=== PATIENT | male | born 1945 | race Caucasian/White ===

== ENCOUNTER 2017-01-07 13:15 | Inpatient (IN) | payer OTHER ==
[~2017-01-07] VITALS: Ht 175.3 cm; Wt 82.6 kg
[~2017-01-07 13:15] MED LIST: ASPIRIN325 MG PO; ASPIRIN81 M2 PO; CALCITRIOL0.25 MCG PO; CENTRUM SILVER1 EAC3 PO; CYMBALTA60 MG PO; Cymbalta PO; FLORINEF ACETA0.1 MG PO; IRON18 MG PO; KAYEXALATE453.6 GM PO; LANTUS 10100 UNITS/ SC; LANTUS 3 M100 UNITS1 SC; LORTAB 5-325 M1 EACH PO; NEXIUM40 MG PO; NOVOLOG 10100 UNITS/ SC; NOVOLOG PE100 UNITS/ SC; NovoLOG, HumaLOG SC; PRAVACHOL80 MG PO; PRAVASTATIN SOD20 MG PO; PROBIOTICS PO; Pen-Vee K,Veetids PO; Pravachol PO; REGLAN10 MG PO; SKELAXIN800 MG PO; SODIUM BICARBO325 MG PO; Sodium Bicarbonate PO; TOPROL XL25 MG PO; TYLENOL ARTHRI650 MG PO; Theragran-M,Centrum, PO; VITAMIN D1000 INTUN PO; VITAMIN D1000 UNIT PO; Vicodin,Norco 5/325 PO; Vitamin D PO; XALATAN2.5 ML BOTH EYES; Xalatan 0.005% Ophth BOTH EYES; ZOFRAN4 MG PO
[2017-01-07 14:07] LABS: POINT-OF-CARE METER ID UU14100415
[2017-01-07 15:12] LABS: HEMATOCRIT 30.7 % (38.0-50.0); MCH 30.3 PG (29.0-34.0); MCHC 32.6 G/DL (30.0-36.0); MEAN PLAT.VOLUME 10.3 uM^3 (9.0-12.4); RBC DIS.WIDTH-CV 15.6 % (11.8-14.6); WHITE BLOOD COUNT 10.1 K/uL (4.1-10.2)
[2017-01-07 15:20] LABS: CHLORIDE 109 mEq/L (99-109); POTASSIUM 4.3 mEq/L (3.7-5.4); SODIUM 136 mEq/L (136-147)
[2017-01-07 15:21] LABS: INTER. NORMALIZED RATIO 1.2; PROTHROMBIN TIME 12.2 (9.2-11.2); PTT 33.6 (25-32)
[2017-01-07 15:22] LABS: GLUCOSE 386 mg/dL (70-99)
[2017-01-07 15:23] LABS: ANION GAP 11 MEQ/L (2-14)
[2017-01-07 15:24] LABS: TOTAL BILIRUBIN 0.4 mg/dL (0.0-1.0)
[2017-01-07 15:25] LABS: ALKALINE PHOSPHATASE 46 IU/L (3-129)
[2017-01-07 15:26] LABS: GFR ESTIMATE (CALCULATED) 17 mL/min/
[2017-01-07 15:27] LABS: UREA NITROGEN (BUN) 73 mg/dL (9-23)
[2017-01-07 15:31] LABS: PLATELET COUNT 142 K/uL (156-360)
[2017-01-07 15:32] LABS: TROP-I INTERPRETATION INDETERMINATE; TROPONIN-I 0.43 ng/mL (0.0-0.30)
[2017-01-07 16:10] LABS: ABS NEUTROPHIL COUNT 9.7; ANISOCYTOSIS 1+; BAND NEUTROPHILS 25.4 % (0-8.0); EOSINOPHIL ABS CT 0; INSTRUMENT ABS NEUTROPHIL CT 9.5 K/uL; METAMYELOCYTES 1.8 %; MYELOCYTES 0.9 %; PLAT.SUFFICIENCY ADEQUATE; PLATELET CLUMPS PRESENT - PLATELET COUNT APPEARS ADQ.; SEG.NEUTROPHILS 70.2 % (46.0-76.0)
[2017-01-07] MEDS ORDERED: VITAMIN D31000 UNIT PO (17:09)
[2017-01-07] MEDS ORDERED: LO-DOSE ASPIRIN81 M2 PO (17:09)
[2017-01-07] MEDS ORDERED: LANTUS 3 M100 UNITS1 SC ×2 (17:10)
[2017-01-07] MEDS ORDERED: VITRON-C TABLE1 EACH PO (17:12)
[2017-01-07] MEDS ORDERED: SODIUM BICARBO325 MG PO (17:12)
[2017-01-07 17:45] LABS: CREATINE KINASE 348 IU/L (1-294)
[2017-01-07 18:03] LABS: ADD MIUA? YES; BILIRUBIN NEGATIVE; BLOOD MODERATE; COLOR YELLOW ((YELLOW)); GLUCOSE (STRIP) >=500; KETONES NEGATIVE; LEUKOCYTES TRACE; NITRITE NEGATIVE; PROTEIN (STRIP) 100; SPECIFIC GRAVITY 1.008 (1.000-1.030); UROBILINOGEN 0.2 MG/DL (0.2-1.0)
[2017-01-07 18:10] LABS: BACTERIA NONE SEEN /HPF; EPITHELIAL CELLS NONE SEEN /HPF; MUCUS NONE SEEN /LPF; RED BLOOD CELLS 0-5 /HPF (0-5); UCUL ADDED? NO
[2017-01-07 18:12] LABS: Estimated Average Glucose 160 mg/dL (70-123); HEMOGLOBIN A1c (GLYCOHEMOGLOB) 7.2 % HGB (Below 5.7)
[2017-01-07 20:27] LABS: POINT-OF-CARE METER ID UU14100415
[2017-01-07 21:50] VITALS: BP 170/88
[2017-01-07 23:15] LABS: POINT-OF-CARE METER ID UU14188625
[2017-01-08] VITALS: BP 144/68
[2017-01-08 00:06] LABS: TROP-I INTERPRETATION POSITIVE; TROPONIN-I 0.77 ng/mL (0.0-0.30)
[2017-01-08 01:41] LABS: INTER. NORMALIZED RATIO 1.2; PROTHROMBIN TIME 11.8 (9.2-11.2); PTT 33.8 (25-32)
[2017-01-08 03:36] LABS: HEMATOCRIT 28.9 % (38.0-50.0); MCH 30.4 PG (29.0-34.0); MCHC 32.9 G/DL (30.0-36.0); MCV 92.6 FL (86-99); MEAN PLAT.VOLUME 11.1 uM^3 (9.0-12.4); PLATELET COUNT 137 K/uL (156-360); RBC DIS.WIDTH-CV 15.4 % (11.8-14.6); RBC DIS.WIDTH-SD 51.8 % (39-53); RED BLOOD COUNT 3.12 M/uL (4.00-5.50); WHITE BLOOD COUNT 13.4 K/uL (4.1-10.2)
[2017-01-08 03:45] LABS: CHLORIDE 113 mEq/L (99-109); POTASSIUM 4.1 mEq/L (3.7-5.4); SODIUM 139 mEq/L (136-147)
[2017-01-08 03:47] LABS: GLUCOSE 292 mg/dL (70-99)
[2017-01-08 03:48] LABS: ANION GAP 10 MEQ/L (2-14)
[2017-01-08 03:49] LABS: TOTAL BILIRUBIN 0.4 mg/dL (0.0-1.0)
[2017-01-08 03:50] LABS: ALKALINE PHOSPHATASE 47 IU/L (3-129)
[2017-01-08 03:51] LABS: GFR ESTIMATE (CALCULATED) 18 mL/min/
[2017-01-08 03:52] LABS: UREA NITROGEN (BUN) 75 mg/dL (9-23)
[2017-01-08 04:01] LABS: TROP-I INTERPRETATION POSITIVE; TROPONIN-I 1.31 ng/mL (0.0-0.30)
[2017-01-08 04:11] VITALS: BP 160/74
[2017-01-08 04:46] LABS: ABS NEUTROPHIL COUNT 12.7; EOSINOPHIL ABS CT 0; INSTRUMENT ABS NEUTROPHIL CT 11.8 K/uL; LYMPHOCYTES 4.4 % (15.0-45.0); PLAT.SUFFICIENCY ADEQUATE; PLATELET CLUMPS PRESENT
[2017-01-08 06:11] LABS: BAND NEUTROPHILS 3.5 % (0-8.0); SEG.NEUTROPHILS 91.2 % (46.0-76.0)
[2017-01-08 08:00] VITALS: BP 154/72
[2017-01-08 08:55] LABS: INTER. NORMALIZED RATIO 1.1; PROTHROMBIN TIME 11.4 (9.2-11.2); PTT 45.5 (25-32)
[2017-01-08 09:24] LABS: TROP-I INTERPRETATION POSITIVE; TROPONIN-I 1.63 ng/mL (0.0-0.30)
[2017-01-08 11:23] LABS: C DIFF TOXIN NEGATIVE (NEGATIVE)
[2017-01-08 11:24] LABS: PROBE CHECK PASS; SPECIMEN PROCESSING CONTROL PASS
[2017-01-08 11:55] LABS: POINT-OF-CARE METER ID UU13113717
[2017-01-08 12:00] VITALS: BP 98/69
[2017-01-08 15:44] VITALS: BP 147/74
[2017-01-08 16:49] LABS: TROPONIN-I 1.75 ng/mL (0.0-0.30)
[2017-01-08 16:50] LABS: TROP-I INTERPRETATION POSITIVE
[2017-01-08 17:24] LABS: POINT-OF-CARE METER ID UU13113717
[2017-01-08 23:34] LABS: TROP-I INTERPRETATION POSITIVE; TROPONIN-I 1.77 ng/mL (0.0-0.30)
[2017-01-09] VITALS: BP 144/67
[2017-01-09 03:21] VITALS: BP 121/60
[2017-01-09 05:50] LABS: HEMATOCRIT 26.9 % (38.0-50.0); MCH 31.2 PG (29.0-34.0); MCHC 33.1 G/DL (30.0-36.0); MCV 94.4 FL (86-99); MEAN PLAT.VOLUME 11.4 uM^3 (9.0-12.4); PLATELET COUNT 127 K/uL (156-360); RBC DIS.WIDTH-CV 15.7 % (11.8-14.6); RBC DIS.WIDTH-SD 53.6 % (39-53); RED BLOOD COUNT 2.85 M/uL (4.00-5.50); WHITE BLOOD COUNT 10.4 K/uL (4.1-10.2)
[2017-01-09 06:14] LABS: ANION GAP 10 MEQ/L (2-14); CHLORIDE 115 MEQ/L (99-109); GFR ESTIMATE (CALCULATED) 21 mL/min/; POTASSIUM 3.7 MEQ/L (3.7-5.4); SAMPLE HEMOLYSIS CHECK 0; SAMPLE ICTERIC CHECK 0; SAMPLE LIPEMIA CHECK 0; SODIUM 140 MEQ/L (136-147); UREA NITROGEN (BUN) 66 mg/dL (9-23)
[2017-01-09 06:24] LABS: GLUCOSE 72 mg/dL (70-99)
[2017-01-09 08:01] LABS: CREATINE KINASE 247 IU/L (1-294)
[2017-01-09 08:19] VITALS: BP 117/57
[2017-01-09 08:26] LABS: TROP-I INTERPRETATION POSITIVE; TROPONIN-I 1.47 ng/mL (0.0-0.30)
[2017-01-09 09:13] LABS: POINT-OF-CARE METER ID UU14188625
[2017-01-09 12:19] VITALS: BP 125/60
[2017-01-09 12:32] LABS: POINT-OF-CARE METER ID UU14188625
[2017-01-09 14:11] LABS: TROP-I INTERPRETATION POSITIVE; TROPONIN-I 1.14 ng/mL (0.0-0.30)
[2017-01-09 20:03] VITALS: BP 125/59
[2017-01-09 21:41] LABS: POINT-OF-CARE METER ID UU14188625
[2017-01-09 22:20] LABS: TROP-I INTERPRETATION POSITIVE
[2017-01-09 23:27] VITALS: BP 117/59
[2017-01-10 07:03] LABS: HEMATOCRIT 27.6 % (38.0-50.0); MCHC 33.3 G/DL (30.0-36.0); MCV 92.9 FL (86-99); MEAN PLAT.VOLUME 11.5 uM^3 (9.0-12.4); PLATELET COUNT 133 K/uL (156-360); RBC DIS.WIDTH-CV 15.7 % (11.8-14.6); RBC DIS.WIDTH-SD 53.4 % (39-53); RED BLOOD COUNT 2.97 M/uL (4.00-5.50); WHITE BLOOD COUNT 9.9 K/uL (4.1-10.2)
[2017-01-10 07:23] LABS: TROP-I INTERPRETATION POSITIVE; TROPONIN-I 0.97 ng/mL (0.0-0.30)
[2017-01-10 07:52] LABS: ANION GAP 12 MEQ/L (2-14); CHLORIDE 112 MEQ/L (99-109); GFR ESTIMATE (CALCULATED) 21 mL/min/; GLUCOSE 124 mg/dL (70-99); POTASSIUM 3.7 MEQ/L (3.7-5.4); SAMPLE HEMOLYSIS CHECK 0; SAMPLE ICTERIC CHECK 0; SAMPLE LIPEMIA CHECK 0; SODIUM 138 MEQ/L (136-147); UREA NITROGEN (BUN) 65 mg/dL (9-23)
[2017-01-10 08:23] VITALS: BP 114/55
[2017-01-10 08:31] LABS: BASE EXCESS -12.8 mEq/L (-3 to +3); BICARBONATE 11.9 mEq/L (22-26); CARBOXY HGB 0.8 % (0-5); METHEMOGLOBIN 0.5 % (0-1.5); pH 7.32 (7.35-7.45)
[2017-01-10 08:33] LABS: PCO2 23 mm Hg (35-45); PO2 69 mm Hg (80-100); SITE LB
[2017-01-10 08:34] LABS: COMMENTS - BLOOD GASES A+C+
[2017-01-10 08:35] LABS: DEVICE RA; TOTAL RESP RATE 14 resp/min
[2017-01-10 14:47] LABS: TROP-I INTERPRETATION POSITIVE; TROPONIN-I 0.92 ng/mL (0.0-0.30)
[2017-01-10 17:04] VITALS: BP 131/62
[2017-01-10 22:43] VITALS: BP 103/55
[2017-01-11 07:57] LABS: POINT-OF-CARE METER ID UU14174225
[2017-01-11 08:06] VITALS: BP 141/71
[2017-01-11 11:37] LABS: EOSINOPHIL (%) 1.1 % (0-5); EOSINOPHIL COUNT 0.1 K/uL (0-0.3); IMMATURE GRANULOCYTE (%) 2.5 % (0.0-0.7); IMMATURE GRANULOCYTE COUNT 0.3 K/uL; INSTRUMENT ABS NEUTROPHIL CT 8.2 K/uL; LYMPHOCYTE COUNT 0.9 K/uL (1.0-2.8); MCH 29.7 PG (29.0-34.0); MCHC 32.2 G/DL (30.0-36.0); MCV 92.2 FL (86-99); MEAN PLAT.VOLUME 10.8 uM^3 (9.0-12.4); MONOCYTE COUNT 0.8 K/uL (0-0.8); NEUTROPHIL (%) 79.9 % (45-76); NEUTROPHIL COUNT 8.2 K/uL (1.8-6.4); PLATELET COUNT 150 K/uL (156-360); RBC DIS.WIDTH-CV 15.5 % (11.8-14.6); RBC DIS.WIDTH-SD 52.7 % (39-53); RED BLOOD COUNT 2.93 M/uL (4.00-5.50); WHITE BLOOD COUNT 10.3 K/uL (4.1-10.2)
[2017-01-11 12:01] LABS: POINT-OF-CARE METER ID UU14188625
[2017-01-11 12:20] LABS: ANION GAP 12 MEQ/L (2-14); C-REACTIVE PROTEIN > 240.0 MG/L (0-10); CHLORIDE 113 MEQ/L (99-109); GFR ESTIMATE (CALCULATED) 20 mL/min/; GLUCOSE 185 mg/dL (70-99); HDL CHOLESTEROL 21 MG/DL (Desirable>=40); LDL CHOLESTEROL 30 mg/dL (Desirable<100); NON-HDL CHOLESTEROL 52 mg/dL (Desirable<160); POTASSIUM 3.9 MEQ/L (3.7-5.4); SAMPLE HEMOLYSIS CHECK 0; SAMPLE ICTERIC CHECK 0; SAMPLE LIPEMIA CHECK 0; SODIUM 138 MEQ/L (136-147); TOTAL CHOLESTEROL 73 mg/dL (Desirable<200); TRIGLYCERIDES 112 MG/DL (Normal: <150); UREA NITROGEN (BUN) 62 mg/dL (9-23)
[2017-01-11 12:42] LABS: ERTH.SED.RATE 56 MM/HR (0-20)
[2017-01-11 13:16] VITALS: BP 136/71
[2017-01-11 15:52] VITALS: BP 135/67
[2017-01-11 20:00] VITALS: BP 134/67
[2017-01-11 21:23] LABS: POINT-OF-CARE METER ID UU14188625
[2017-01-11 21:55] LABS: WBC AREA COUNTED 0.4; WBC DILUTION 20; WHITE CELL RAW COUNT 57
[2017-01-11 21:59] LABS: APPEARANCE ORANGE-TURBID; MONONUCLEAR WBC'S 24 %; POLYNUCLEAR WBC'S 76 % (0-25); RED CELL COUNT 212000 /MM^3 (0-1); SYNOVIAL FLUID EOSINOPHILS 0 % (0-25); WHITE CELL COUNT 28500 /MM^3 (0-200.0)
[2017-01-11 22:37] LABS: Estimated Average Glucose 163 mg/dL (70-123); HEMOGLOBIN A1c (GLYCOHEMOGLOB) 7.3 % HGB (Below 5.7)
[2017-01-11 23:30] VITALS: BP 159/77
[2017-01-12 04:00] VITALS: BP 142/69
[2017-01-12 06:13] LABS: HEMATOCRIT 25.4 % (38.0-50.0); MCH 30.2 PG (29.0-34.0); MCHC 33.1 G/DL (30.0-36.0); MCV 91.4 FL (86-99); MEAN PLAT.VOLUME 11.1 uM^3 (9.0-12.4); PLATELET COUNT 177 K/uL (156-360); RBC DIS.WIDTH-CV 15.6 % (11.8-14.6); RBC DIS.WIDTH-SD 51.7 % (39-53); RED BLOOD COUNT 2.78 M/uL (4.00-5.50); WHITE BLOOD COUNT 11.3 K/uL (4.1-10.2)
[2017-01-12 06:58] LABS: ANION GAP 14 MEQ/L (2-14); CHLORIDE 116 MEQ/L (99-109); GFR ESTIMATE (CALCULATED) 22 mL/min/; POTASSIUM 3.3 MEQ/L (3.7-5.4); SAMPLE HEMOLYSIS CHECK 0; SAMPLE ICTERIC CHECK 0; SAMPLE LIPEMIA CHECK 0; SODIUM 139 MEQ/L (136-147); UREA NITROGEN (BUN) 61 mg/dL (9-23)
[2017-01-12 07:00] LABS: GLUCOSE 117 mg/dL (70-99)
[2017-01-12 07:01] LABS: CRYSTALS NO CRYSTALS SEEN
[2017-01-12 07:01] LABS: CARBON DIOXIDE (BICARBONATE) < 10.0 MEQ/L (20-31)
[2017-01-12 08:02] LABS: POINT-OF-CARE METER ID UU14188625
[2017-01-12 08:32] VITALS: BP 91/66
[2017-01-12 11:17] VITALS: BP 114/63
[2017-01-12 15:39] VITALS: BP 139/77
[2017-01-12 17:01] LABS: POINT-OF-CARE METER ID UU14188625
[2017-01-12 19:12] LABS: POINT-OF-CARE METER ID UU13113675; POINT-OF-CARE USER ID ADMSLT55
[2017-01-12 20:56] LABS: ANION GAP 12 MEQ/L (2-14); CHLORIDE 112 MEQ/L (99-109); GFR ESTIMATE (CALCULATED) 23 mL/min/; GLUCOSE 170 mg/dL (70-99); POTASSIUM 3.5 MEQ/L (3.7-5.4); SAMPLE HEMOLYSIS CHECK 0; SAMPLE ICTERIC CHECK 0; SAMPLE LIPEMIA CHECK 0; SODIUM 139 MEQ/L (136-147); UREA NITROGEN (BUN) 58 mg/dL (9-23)
[2017-01-13 00:36] VITALS: BP 141/78
[2017-01-13 05:53] LABS: HEMATOCRIT 25.5 % (38.0-50.0); MCH 30.7 PG (29.0-34.0); MCHC 34.1 G/DL (30.0-36.0); MCV 90.1 FL (86-99); MEAN PLAT.VOLUME 11.6 uM^3 (9.0-12.4); RBC DIS.WIDTH-CV 15.5 % (11.8-14.6); RBC DIS.WIDTH-SD 51.2 % (39-53); RED BLOOD COUNT 2.83 M/uL (4.00-5.50); WHITE BLOOD COUNT 11.6 K/uL (4.1-10.2)
[2017-01-13 05:54] LABS: PLATELET COUNT 237 K/uL (156-360)
[2017-01-13 06:32] LABS: ANION GAP 13 MEQ/L (2-14); CHLORIDE 110 MEQ/L (99-109); GFR ESTIMATE (CALCULATED) 24 mL/min/; GLUCOSE 157 mg/dL (70-99); POTASSIUM 3.6 MEQ/L (3.7-5.4); SAMPLE HEMOLYSIS CHECK 0; SAMPLE ICTERIC CHECK 0; SAMPLE LIPEMIA CHECK 0; SODIUM 140 MEQ/L (136-147); UREA NITROGEN (BUN) 57 mg/dL (9-23)
[2017-01-13 08:00] VITALS: BP 140/70
[2017-01-13 09:11] LABS: MAGNESIUM 1.7 mg/dl (1.3-2.7)
[2017-01-13 11:24] VITALS: BP 144/75
[2017-01-13 13:29] LABS: ANION GAP 12 MEQ/L (2-14); CHLORIDE 108 MEQ/L (99-109); GFR ESTIMATE (CALCULATED) 24 mL/min/; POTASSIUM 3.5 MEQ/L (3.7-5.4); SAMPLE HEMOLYSIS CHECK 0; SAMPLE ICTERIC CHECK 0; SAMPLE LIPEMIA CHECK 0; SODIUM 139 MEQ/L (136-147); UREA NITROGEN (BUN) 52 mg/dL (9-23)
[2017-01-13 13:30] LABS: GLUCOSE 257 mg/dL (70-99)
[2017-01-13 14:22] VITALS: BP 135/63
[2017-01-13 20:39] VITALS: BP 132/62
[2017-01-14 00:25] VITALS: BP 163/73
[2017-01-14 04:22] VITALS: BP 146/71
[2017-01-14 06:49] LABS: HEMATOCRIT 25.5 % (38.0-50.0); MCH 30.9 PG (29.0-34.0); MCHC 34.1 G/DL (30.0-36.0); MCV 90.4 FL (86-99); MEAN PLAT.VOLUME 10.7 uM^3 (9.0-12.4); PLATELET COUNT 273 K/uL (156-360); RBC DIS.WIDTH-CV 15.1 % (11.8-14.6); RBC DIS.WIDTH-SD 50.3 % (39-53); RED BLOOD COUNT 2.82 M/uL (4.00-5.50); WHITE BLOOD COUNT 14.7 K/uL (4.1-10.2)
[2017-01-14 07:39] LABS: ANION GAP 12 MEQ/L (2-14); CHLORIDE 107 MEQ/L (99-109); GFR ESTIMATE (CALCULATED) 25 mL/min/; POTASSIUM 3.1 MEQ/L (3.7-5.4); SAMPLE HEMOLYSIS CHECK 0; SAMPLE ICTERIC CHECK 0; SAMPLE LIPEMIA CHECK 0; SODIUM 139 MEQ/L (136-147); UREA NITROGEN (BUN) 48 mg/dL (9-23)
[2017-01-14 07:40] LABS: GLUCOSE 74 mg/dL (70-99)
[2017-01-14 08:14] VITALS: BP 142/69
[2017-01-14 12:10] VITALS: BP 135/69
[2017-01-14 14:59] VITALS: BP 125/60
[2017-01-14 16:41] LABS: POINT-OF-CARE METER ID UU14174225
[2017-01-14 20:07] VITALS: BP 125/60
[2017-01-14 22:03] LABS: POINT-OF-CARE METER ID UU14174225
[2017-01-15 00:02] VITALS: BP 150/72
[2017-01-15 04:33] VITALS: BP 146/69
[2017-01-15 06:12] LABS: HEMATOCRIT 25.4 % (38.0-50.0); MCH 29.4 PG (29.0-34.0); MCHC 32.7 G/DL (30.0-36.0); MCV 90.1 FL (86-99); MEAN PLAT.VOLUME 10.8 uM^3 (9.0-12.4); PLATELET COUNT 295 K/uL (156-360); RBC DIS.WIDTH-SD 49.5 % (39-53); RED BLOOD COUNT 2.82 M/uL (4.00-5.50); WHITE BLOOD COUNT 12.9 K/uL (4.1-10.2)
[2017-01-15 06:50] LABS: ANION GAP 12 MEQ/L (2-14); CHLORIDE 108 MEQ/L (99-109); GFR ESTIMATE (CALCULATED) 24 mL/min/; SAMPLE HEMOLYSIS CHECK 0; SAMPLE ICTERIC CHECK 0; SAMPLE LIPEMIA CHECK 0; SODIUM 137 MEQ/L (136-147); UREA NITROGEN (BUN) 54 mg/dL (9-23)
[2017-01-15 06:57] LABS: GLUCOSE 114 mg/dL (70-99); POTASSIUM 3.9 MEQ/L (3.7-5.4)
[2017-01-15 07:07] LABS: MAGNESIUM 1.8 mg/dl (1.3-2.7)
[2017-01-15 09:47] VITALS: BP 125/65
[2017-01-15 11:25] VITALS: BP 111/60
[2017-01-15 17:18] VITALS: BP 161/80
[2017-01-15 21:25] VITALS: BP 162/65
[2017-01-16 00:27] VITALS: BP 119/71
[2017-01-16 05:38] LABS: HEMATOCRIT 26.8 % (38.0-50.0); MCH 30.4 PG (29.0-34.0); MCHC 33.2 G/DL (30.0-36.0); MCV 91.5 FL (86-99); MEAN PLAT.VOLUME 10.5 uM^3 (9.0-12.4); PLATELET COUNT 309 K/uL (156-360); RBC DIS.WIDTH-CV 15.2 % (11.8-14.6); RBC DIS.WIDTH-SD 50.4 % (39-53); RED BLOOD COUNT 2.93 M/uL (4.00-5.50)
[2017-01-16 06:06] LABS: ANION GAP 13 MEQ/L (2-14); CHLORIDE 109 MEQ/L (99-109); GFR ESTIMATE (CALCULATED) 23 mL/min/; GLUCOSE 93 mg/dL (70-99); POTASSIUM 3.9 MEQ/L (3.7-5.4); SAMPLE HEMOLYSIS CHECK 0; SAMPLE ICTERIC CHECK 0; SAMPLE LIPEMIA CHECK 0; SODIUM 139 MEQ/L (136-147); UREA NITROGEN (BUN) 54 mg/dL (9-23)
[2017-01-16 08:19] VITALS: BP 125/71
[2017-01-16 11:26] LABS: POINT-OF-CARE METER ID UU14174212
[2017-01-16 12:03] LABS: POINT-OF-CARE METER ID UU13113819
[2017-01-16] MEDS ORDERED: VIGAMOX 0.60 DROP/3 LEFT EYE (12:49)
[2017-01-16] MEDS ORDERED: PREDNISOLONE AC15 ML LEFT EYE (12:49)
[2017-01-16 23:35] VITALS: BP 142/65
[2017-01-17 06:14] LABS: ANION GAP 11 MEQ/L (2-14); CHLORIDE 109 MEQ/L (99-109); GFR ESTIMATE (CALCULATED) 23 mL/min/; SAMPLE HEMOLYSIS CHECK 0; SAMPLE ICTERIC CHECK 0; SAMPLE LIPEMIA CHECK 0; SODIUM 138 MEQ/L (136-147); UREA NITROGEN (BUN) 59 mg/dL (9-23)
[2017-01-17 06:15] LABS: GLUCOSE 142 mg/dL (70-99); POTASSIUM 4.7 MEQ/L (3.7-5.4)
[2017-01-17 11:17] VITALS: BP 118/66
[2017-01-17 16:27] LABS: POINT-OF-CARE METER ID UU13113717
[2017-01-17 23:46] VITALS: BP 145/63
[2017-01-18 05:36] LABS: HEMATOCRIT 25.6 % (38.0-50.0); MCH 29.2 PG (29.0-34.0); MCV 91.1 FL (86-99); MEAN PLAT.VOLUME 10.8 uM^3 (9.0-12.4); PLATELET COUNT 356 K/uL (156-360); RBC DIS.WIDTH-CV 14.9 % (11.8-14.6); RBC DIS.WIDTH-SD 50.2 % (39-53); RED BLOOD COUNT 2.81 M/uL (4.00-5.50); WHITE BLOOD COUNT 9.6 K/uL (4.1-10.2)
[2017-01-18 06:36] LABS: ANION GAP 12 MEQ/L (2-14); CHLORIDE 109 MEQ/L (99-109); GFR ESTIMATE (CALCULATED) 20 mL/min/; POTASSIUM 4.8 MEQ/L (3.7-5.4); SAMPLE HEMOLYSIS CHECK 0; SAMPLE ICTERIC CHECK 0; SAMPLE LIPEMIA CHECK 0; SODIUM 137 MEQ/L (136-147); UREA NITROGEN (BUN) 68 mg/dL (9-23)
[2017-01-18 06:40] LABS: GLUCOSE 77 mg/dL (70-99)
[2017-01-18 07:54] LABS: POINT-OF-CARE METER ID UU14174225
[2017-01-18 08:18] VITALS: BP 139/65
[2017-01-18 08:19] LABS: POINT-OF-CARE METER ID UU14174225
[2017-01-18 11:41] LABS: POINT-OF-CARE METER ID UU14174225
[2017-01-18 16:54] LABS: POINT-OF-CARE METER ID UU14174225
[2017-01-18] MEDS ORDERED: [UNRECOGNIZED DRUG - CODE] IV (16:55)
[2017-01-18 17:23] VITALS: BP 124/75
== END 2017-01-18 20:44 | disposition short-term general hospital (02) | DRG 853 ==
LOC: EME → EDBD 13:15 → 5SOUTH 16:40 → EDOF 16:40 → 5SOUTH 21:16
PROVIDERS: Emergency Medicine; Hospitalist; Internal Medicine; Internal Medicine Cardiovascular Disease; Internal Medicine Nephrology; Nurse Practitioner Adult Health; Orthopaedic Surgery
PROC: 0S9G3ZX Drainage of Left Ankle Joint, Percutaneous Approach, Diagnostic (ICD-10-PCS; principal; 2017-01-11)
PROC: 08933ZZ Drainage of Left Anterior Chamber, Percutaneous Approach (ICD-10-PCS; principal; 2017-01-11)
PROC: 0SBG0ZZ Excision of Left Ankle Joint, Open Approach (ICD-10-PCS; 2017-01-12)
PROC: B24BZZ4 Ultrasonography of Heart with Aorta, Transesophageal (ICD-10-PCS; 2017-01-18)
DX: A40.9 Streptococcal sepsis, unspecified (principal); I33.0 Acute and subacute infective endocarditis; I76 Septic arterial embolism; I21.4 Non-ST elevation (NSTEMI) myocardial infarction; I63.40 Cerebral infarction due to embolism of unspecified cerebral artery; T82.6XXA Infection and inflammatory reaction due to cardiac valve prosthesis, initial encounter; M00.272 Other streptococcal arthritis, left ankle and foot; L03.116 Cellulitis of left lower limb; N17.9 Acute kidney failure, unspecified; N18.4 Chronic kidney disease, stage 4 (severe); H44.002 Unspecified purulent endophthalmitis, left eye; G93.40 Encephalopathy, unspecified; E11.65 Type 2 diabetes mellitus with hyperglycemia; E11.22 Type 2 diabetes mellitus with diabetic chronic kidney disease; E11.43 Type 2 diabetes mellitus with diabetic autonomic (poly)neuropathy; Y83.1 Surgical operation with implant of artificial internal device as the cause of abnormal reaction of the patient, or of later complication, without mention of misadventure at the time of the procedure; E87.2 Acidosis; I73.9 Peripheral vascular disease, unspecified; E87.5 Hyperkalemia; E11.21 Type 2 diabetes mellitus with diabetic nephropathy; D63.1 Anemia in chronic kidney disease; H40.9 Unspecified glaucoma; E87.6 Hypokalemia; E55.9 Vitamin D deficiency, unspecified; E78.5 Hyperlipidemia, unspecified; B95.5 Unspecified streptococcus as the cause of diseases classified elsewhere; B95.4 Other streptococcus as the cause of diseases classified elsewhere; Z79.4 Long term (current) use of insulin; Z96.1 Presence of intraocular lens
CPT/HCPCS: 36600; 70450; 70551; 71010; 73610; 73630; 80048; 80048 91; 80053; 80061; 80069; 80202; 81003; 82550; 82550 91; 82803; 82948; 83036; 83605; 83735; 84484; 85025; 85027; 85610; 85651; 85730; 86140; 87040; 87077; 87102; 87186; 87205; 87493; 87801; 89051; 89060; 93005; 93306; 93312; 93970; 97530 GP; 99281; 99285; J0690; J0692; J0696; J0713; J0881; J1100; J1170; J1644; J1815; J1956; J2270; J2405; J2540; J2795; J3010; J3370; J7030; J7050; J7070; J7120

== ENCOUNTER 2017-02-01 10:13 | Inpatient (IN) | payer OTHER ==
[~2017-02-01] VITALS: Ht 175.3 cm; Wt 76.2 kg
[2017-02-01] VITALS (11 sets, daily range): BP systolic 105–136; BP diastolic 53–78
[~2017-02-01 10:13] MED LIST changes: +LO-DOSE ASPIRIN81 M2 PO; +PREDNISOLONE AC15 ML LEFT EYE; +VIGAMOX 0.60 DROP/3 LEFT EYE; +VITAMIN D31000 UNIT PO; +VITRON-C TABLE1 EACH PO; +[UNRECOGNIZED DRUG - CODE] IV
[2017-02-01] MEDS ORDERED: HEPARIN SO5000 UNITS SC (10:55)
[2017-02-01] MEDS ORDERED: NABI650T PO (10:59)
[2017-02-01] MEDS ORDERED: DULCOLAX10 MG PR (11:06)
[2017-02-01] MEDS ORDERED: MILK OF MAGN PO (11:08)
[2017-02-01] MEDS ORDERED: MIRALAX17 GM PO (11:10)
[2017-02-01] MEDS ORDERED: ULTRAM50 MG PO (11:11)
[2017-02-01 11:33] LABS: INTER. NORMALIZED RATIO 1.3; PROTHROMBIN TIME 14.2 SEC (10.2-12.9)
[2017-02-01 11:38] LABS: CHLORIDE 100 mEq/L (99-109); POTASSIUM 4.5 mEq/L (3.7-5.4); SODIUM 127 mEq/L (136-147)
[2017-02-01 11:39] LABS: HEMATOCRIT 15.5 % (38.0-50.0); MCH 28.7 PG (29.0-34.0); MCHC 31.6 G/DL (30.0-36.0); MCV 90.6 FL (86-99); RBC DIS.WIDTH-CV 16.9 % (11.8-14.6); RBC DIS.WIDTH-SD 54.4 % (39-53); RED BLOOD COUNT 1.71 M/uL (4.00-5.50); WHITE BLOOD COUNT 11.7 K/uL (4.1-10.2)
[2017-02-01 11:41] LABS: ANION GAP 8 MEQ/L (2-14)
[2017-02-01 11:42] LABS: TOTAL BILIRUBIN 0.2 mg/dL (0.0-1.0)
[2017-02-01 11:43] LABS: ALKALINE PHOSPHATASE 74 IU/L (3-129)
[2017-02-01 11:44] LABS: GFR ESTIMATE (CALCULATED) 20 mL/min/; GLUCOSE 331 mg/dL (70-99)
[2017-02-01 11:46] LABS: TROP-I INTERPRETATION NEGATIVE; TROPONIN-I 0.01 ng/mL (0.0-0.30)
[2017-02-01 11:54] LABS: UREA NITROGEN (BUN) 122 mg/dL (9-23)
[2017-02-01] MEDS ORDERED: [UNRECOGNIZED DRUG - CODE] IV (12:58)
[2017-02-01 15:09] LABS: MEAN PLAT.VOLUME 11.4 uM^3 (9.0-12.4); PLATELET COUNT 235 K/uL (156-360)
[2017-02-01 15:10] LABS: PLAT.SUFFICIENCY ADEQUATE
[2017-02-01 16:42] LABS: POINT-OF-CARE METER ID UU13113781; POINT-OF-CARE USER ID ENVKC36
[2017-02-01 18:24] LABS: HEMATOCRIT 21.6 % (38.0-50.0); MCH 28.7 PG (29.0-34.0); MCHC 32.9 G/DL (30.0-36.0); MCV 87.4 FL (86-99); MEAN PLAT.VOLUME 10.3 uM^3 (9.0-12.4); PLATELET COUNT 240 K/uL (156-360); RBC DIS.WIDTH-CV 16.1 % (11.8-14.6); RBC DIS.WIDTH-SD 50.8 % (39-53); WHITE BLOOD COUNT 12.4 K/uL (4.1-10.2)
[2017-02-01 18:28] LABS: RED BLOOD COUNT 2.47 M/uL (4.00-5.50)
[2017-02-02] VITALS (7 sets, daily range): BP systolic 117–150; BP diastolic 56–76
[2017-02-02 01:08] LABS: HEMATOCRIT 19.6 % (38.0-50.0)
[2017-02-02 07:43] LABS: HEMATOCRIT 23.3 % (38.0-50.0); MCH 29.4 PG (29.0-34.0); MCHC 33.5 G/DL (30.0-36.0); MCV 87.9 FL (86-99); MEAN PLAT.VOLUME 10.4 uM^3 (9.0-12.4); PLATELET COUNT 217 K/uL (156-360); RBC DIS.WIDTH-CV 16.5 % (11.8-14.6); RBC DIS.WIDTH-SD 51.8 % (39-53); RED BLOOD COUNT 2.65 M/uL (4.00-5.50); WHITE BLOOD COUNT 9.9 K/uL (4.1-10.2)
[2017-02-02 08:07] LABS: ALKALINE PHOSPHATASE 62 IU/L (3-129); ANION GAP 10 MEQ/L (2-14); CHLORIDE 112 MEQ/L (99-109); GFR ESTIMATE (CALCULATED) 24 mL/min/; GLUCOSE 124 mg/dL (70-99); POTASSIUM 4.1 MEQ/L (3.7-5.4); SAMPLE HEMOLYSIS CHECK 0; SAMPLE ICTERIC CHECK 0; SAMPLE LIPEMIA CHECK 0; SODIUM 140 MEQ/L (136-147); TOTAL BILIRUBIN 0.4 MG/DL (0.0-1.0); UREA NITROGEN (BUN) 87 mg/dL (9-23)
[2017-02-02 12:03] LABS: POINT-OF-CARE METER ID UU13113803
[2017-02-02 15:55] LABS: POINT-OF-CARE METER ID UU13113698
[2017-02-02 19:34] LABS: POINT-OF-CARE METER ID UU14107333
[2017-02-02 21:01] LABS: POINT-OF-CARE METER ID UU13113675
[2017-02-03] VITALS (7 sets, daily range): BP systolic 113–143; BP diastolic 66–76
[2017-02-03 05:54] LABS: HEMATOCRIT 25.1 % (38.0-50.0); MCHC 33.5 G/DL (30.0-36.0); MCV 89.6 FL (86-99); NRBC (%) 0.2 /100 WBC (0-0); PLATELET COUNT 232 K/uL (156-360); RBC DIS.WIDTH-CV 16.8 % (11.8-14.6); WHITE BLOOD COUNT 9.5 K/uL (4.1-10.2)
[2017-02-03 06:03] LABS: POINT-OF-CARE METER ID UU13113781
[2017-02-03 06:18] LABS: ANION GAP 11 MEQ/L (2-14); CHLORIDE 113 MEQ/L (99-109); GFR ESTIMATE (CALCULATED) 26 mL/min/; GLUCOSE 137 mg/dL (70-99); POTASSIUM 4.2 MEQ/L (3.7-5.4); SAMPLE HEMOLYSIS CHECK 0; SAMPLE ICTERIC CHECK 0; SAMPLE LIPEMIA CHECK 0; SODIUM 141 MEQ/L (136-147); UREA NITROGEN (BUN) 61 mg/dL (9-23)
[2017-02-03 10:42] LABS: POC NON-PRINT COM 1 ND
[2017-02-03 11:38] LABS: POINT-OF-CARE METER ID UU13113698; POINT-OF-CARE USER ID ENVKC36
[2017-02-03 16:38] LABS: POINT-OF-CARE USER ID ENVKC36
[2017-02-04 04:43] VITALS: BP 122/74
[2017-02-04 05:50] LABS: EOSINOPHIL (%) 4.9 % (0-5); EOSINOPHIL COUNT 0.6 K/uL (0-0.3); HEMATOCRIT 22.5 % (38.0-50.0); IMMATURE GRANULOCYTE COUNT 0.2 K/uL; INSTRUMENT ABS NEUTROPHIL CT 7.6 K/uL; MCHC 33.8 G/DL (30.0-36.0); MCV 88.9 FL (86-99); MEAN PLAT.VOLUME 11.1 uM^3 (9.0-12.4); MONOCYTE (%) 6.5 % (3-12); MONOCYTE COUNT 0.7 K/uL (0-0.8); NEUTROPHIL (%) 68.4 % (45-76); NEUTROPHIL COUNT 7.6 K/uL (1.8-6.4); PLATELET COUNT 245 K/uL (156-360); RBC DIS.WIDTH-SD 52.5 % (39-53); RED BLOOD COUNT 2.53 M/uL (4.00-5.50); WHITE BLOOD COUNT 11.2 K/uL (4.1-10.2)
[2017-02-04 06:45] LABS: ANION GAP 8 MEQ/L (2-14); CHLORIDE 108 MEQ/L (99-109); GFR ESTIMATE (CALCULATED) 26 mL/min/; POTASSIUM 3.9 MEQ/L (3.7-5.4); SAMPLE HEMOLYSIS CHECK 0; SAMPLE ICTERIC CHECK 0; SAMPLE LIPEMIA CHECK 0; SODIUM 137 MEQ/L (136-147); UREA NITROGEN (BUN) 46 mg/dL (9-23)
[2017-02-04 06:53] LABS: GLUCOSE 48 mg/dL (70-99)
[2017-02-04 08:28] VITALS: BP 121/62
[2017-02-04] MEDS ORDERED: PANTOPRAZOLE SO40 MG PO (11:05)
[2017-02-04] MEDS ORDERED: FLORINEF ACETA0.1 MG PO (11:05)
[2017-02-04] MEDS ORDERED: CALCITRIOL0.25 MCG PO (11:05)
[2017-02-04] MEDS ORDERED: ULTRAM50 MG PO (11:05)
== END 2017-02-04 12:37 | DRG 377 ==
LOC: EME 10:13 → ENRESERV 12:45 → EDOF 12:56 → 4EAST 12:56 → EDOF 13:01 → ENRESERV 13:37 → 4EAST 15:19
PROVIDERS: Emergency Medicine; Hospitalist; Internal Medicine
PROC: 30233N1 Transfusion of Nonautologous Red Blood Cells into Peripheral Vein, Percutaneous Approach (ICD-10-PCS; principal; 2017-02-01)
PROC: 0DB68ZX Excision of Stomach, Via Natural or Artificial Opening Endoscopic, Diagnostic (ICD-10-PCS; 2017-02-02)
DX: K26.4 Chronic or unspecified duodenal ulcer with hemorrhage (principal); D50.0 Iron deficiency anemia secondary to blood loss (chronic); K29.80 Duodenitis without bleeding; I33.0 Acute and subacute infective endocarditis; B95.4 Other streptococcus as the cause of diseases classified elsewhere; H44.002 Unspecified purulent endophthalmitis, left eye; I95.9 Hypotension, unspecified; K21.9 Gastro-esophageal reflux disease without esophagitis; E11.21 Type 2 diabetes mellitus with diabetic nephropathy; E11.22 Type 2 diabetes mellitus with diabetic chronic kidney disease; I12.9 Hypertensive chronic kidney disease with stage 1 through stage 4 chronic kidney disease, or unspecified chronic kidney disease; N18.4 Chronic kidney disease, stage 4 (severe); E11.42 Type 2 diabetes mellitus with diabetic polyneuropathy; E87.2 Acidosis; E87.1 Hypo-osmolality and hyponatremia; I21.4 Non-ST elevation (NSTEMI) myocardial infarction; N25.81 Secondary hyperparathyroidism of renal origin; E11.65 Type 2 diabetes mellitus with hyperglycemia; E78.5 Hyperlipidemia, unspecified; I25.10 Atherosclerotic heart disease of native coronary artery without angina pectoris; I44.0 Atrioventricular block, first degree; N31.9 Neuromuscular dysfunction of bladder, unspecified; D63.1 Anemia in chronic kidney disease; I73.9 Peripheral vascular disease, unspecified; E55.9 Vitamin D deficiency, unspecified; E87.5 Hyperkalemia; Z66 Do not resuscitate; Z79.4 Long term (current) use of insulin; Z95.2 Presence of prosthetic heart valve; Z86.73 Personal history of transient ischemic attack (TIA), and cerebral infarction without residual deficits; Z95.1 Presence of aortocoronary bypass graft; Z79.82 Long term (current) use of aspirin; Z85.72 Personal history of non-Hodgkin lymphomas; Z85.51 Personal history of malignant neoplasm of bladder
CPT/HCPCS: 71010; 80053; 80069; 82272; 82941 90; 82948; 84484; 85014; 85018; 85025; 85027; 85610; 85730; 86900; 86901; 86920; 88305; 88342 TC; 93005; 99281; 99285; C9113; J0881; J1815; J2540; J3010; J7030; J7050; P9016; P9040

== ENCOUNTER → 2017-03-02 | Outpatient (CLI) | payer OTHER ==
[~2017-03-02] MED LIST changes: +DULCOLAX10 MG PR; +HEPARIN SO5000 UNITS SC; +MILK OF MAGN PO; +MIRALAX17 GM PO; +NABI650T PO; +PANTOPRAZOLE SO40 MG PO; +ULTRAM50 MG PO
== END ==
LOC: RAD 14:34 → EDSTATUS 15:00 → RAD 15:00
PROC: 0JPTXXZ Removal of Tunneled Vascular Access Device from Trunk Subcutaneous Tissue and Fascia, External Approach (ICD-10-PCS; principal; 2017-03-02)
DX: Z45.2 Encounter for adjustment and management of vascular access device (principal)
CPT/HCPCS: 36590

== ENCOUNTER 2017-06-20 12:48 | Inpatient (IN) | payer OTHER ==
[~2017-06-20] VITALS: Ht 174 cm; Wt 75.8 kg
[2017-06-20 14:08] LABS: MCH 29.8 PG (29.0-34.0); MCHC 34.1 G/DL (30.0-36.0); MCV 87.2 FL (86-99); PLATELET COUNT 290 K/uL (156-360); RBC DIS.WIDTH-CV 15.8 % (11.8-14.6); RBC DIS.WIDTH-SD 50.1 % (39-53); WHITE BLOOD COUNT 7.1 K/uL (4.1-10.2)
[2017-06-20 14:21] LABS: CHLORIDE 113 mEq/L (99-109); POTASSIUM 4.5 mEq/L (3.7-5.4); SODIUM 138 mEq/L (136-147)
[2017-06-20 14:23] LABS: GLUCOSE 387 mg/dL (70-99)
[2017-06-20 14:27] LABS: GFR ESTIMATE (CALCULATED) 16 mL/min/ (58.99-99999)
[2017-06-20 14:28] LABS: UREA NITROGEN (BUN) 100 mg/dL (9-23)
[2017-06-20 14:32] LABS: TROP-I INTERPRETATION NEGATIVE; TROPONIN-I 0.04 ng/mL (0.0-0.30)
[2017-06-20 15:21] LABS: ALBUMIN 4.7 g/dL (3.2-4.8)
[2017-06-20 15:25] LABS: TOTAL BILIRUBIN 0.4 mg/dL (0.0-1.0)
[2017-06-20 15:26] LABS: ALKALINE PHOSPHATASE 108 IU/L (3-129)
[2017-06-20 15:29] LABS: AST (GOT) 11 IU/L (2-34); DIRECT BILIRUBIN 0.2 mg/dL (0.0-0.3)
[2017-06-20 15:30] LABS: ALT (GPT) 14 IU/L (3-49)
[2017-06-20 16:08] LABS: ALBUMIN 4.3 g/dL (3.2-4.8); CHLORIDE 117 mEq/L (99-109); POTASSIUM 4.1 mEq/L (3.7-5.4); SODIUM 139 mEq/L (136-147)
[2017-06-20 16:09] LABS: CHLORIDE 117 mEq/L (99-109); GLUCOSE 364 mg/dL (70-99); SODIUM 139 mEq/L (136-147)
[2017-06-20 16:11] LABS: GLUCOSE 365 mg/dL (70-99); TOTAL PROTEIN 8.4 g/dL (6.4-8.3)
[2017-06-20 16:12] LABS: BASE EXCESS -16.6 mEq/L (-3 to +3); BICARBONATE 9.8 mEq/L (22-26); CARBOXY HGB 0.7 % (0-5); METHEMOGLOBIN 0.5 % (0-1.5); PCO2 25 mm Hg (35-45); PO2 94 mm Hg (80-100); SITE LR
[2017-06-20 16:13] LABS: CREATININE 3.8 mg/dL (0.6-1.3); GFR ESTIMATE (CALCULATED) 17 mL/min/ (58.99-99999); PHOSPHORUS 3.6 mg/dL (2.5-4.9); TOTAL BILIRUBIN 0.4 mg/dL (0.0-1.0)
[2017-06-20 16:13] LABS: COMMENTS - BLOOD GASES A+C+; FI02 0.21 %; TOTAL RESP RATE 17 resp/min
[2017-06-20 16:14] LABS: ALKALINE PHOSPHATASE 94 IU/L (3-129); UREA NITROGEN (BUN) 99 mg/dL (9-23)
[2017-06-20 16:15] LABS: CREATININE 3.8 mg/dL (0.6-1.3); GFR ESTIMATE (CALCULATED) 17 mL/min/ (58.99-99999)
[2017-06-20 16:16] LABS: AST (GOT) 11 IU/L (2-34); UREA NITROGEN (BUN) 98 mg/dL (9-23)
[2017-06-20 16:17] LABS: ALT (GPT) 12 IU/L (3-49)
[2017-06-20 16:22] LABS: Estimated Average Glucose 255 mg/dL (70-123); HEMOGLOBIN A1c (GLYCOHEMOGLOB) 10.5 % HGB (Below 5.7)
[2017-06-20] MEDS ORDERED: CALCITRIOL0.25 MCG PO ×2 (17:59→18:00)
[2017-06-20] MEDS ORDERED: PANTOPRAZOLE SO40 MG PO (18:04)
[2017-06-20] MEDS ORDERED: PREDNISOLONE AC15 ML LEFT EYE (18:05)
[2017-06-20] MEDS ORDERED: ASPIR-LOW81 MG PO (18:07)
[2017-06-20] MEDS ORDERED: VITRON-C TABLE1 EACH PO (18:08)
[2017-06-20] MEDS ORDERED: ACIDOPHILUS1 EAC5 PO (18:10)
[2017-06-20 20:05] LABS: CHLORIDE 122 mEq/L (99-109); POTASSIUM 3.4 mEq/L (3.7-5.4); SODIUM 142 mEq/L (136-147)
[2017-06-20 20:07] LABS: GLUCOSE 192 mg/dL (70-99)
[2017-06-20 20:11] LABS: CREATININE 3.4 mg/dL (0.6-1.3); GFR ESTIMATE (CALCULATED) 19 mL/min/ (58.99-99999); PHOSPHORUS 2.3 mg/dL (2.5-4.9); UREA NITROGEN (BUN) 96 mg/dL (9-23)
[2017-06-20 20:48] LABS: TROP-I INTERPRETATION NEGATIVE; TROPONIN-I 0.04 ng/mL (0.0-0.30)
[2017-06-20 22:55] VITALS: BP 175/76
[2017-06-20 23:00] VITALS: BP 175/77
[2017-06-20 23:10] VITALS: BP 0/0; BP 158/73
[2017-06-20 23:30] VITALS: BP 0/0; BP 163/82
[2017-06-21] VITALS (24 sets, daily range): BP systolic 118–175; BP diastolic 53–92
[2017-06-21 00:55] LABS: CHLORIDE 121 mEq/L (99-109); POTASSIUM 3.4 mEq/L (3.7-5.4); SODIUM 143 mEq/L (136-147)
[2017-06-21 01:00] LABS: PHOSPHORUS 2.6 mg/dL (2.5-4.9)
[2017-06-21 01:01] LABS: CREATININE 3.1 mg/dL (0.6-1.3); GFR ESTIMATE (CALCULATED) 21 mL/min/ (58.99-99999)
[2017-06-21 01:02] LABS: UREA NITROGEN (BUN) 89 mg/dL (9-23)
[2017-06-21 01:06] LABS: GLUCOSE 110 mg/dL (70-99)
[2017-06-21 05:59] LABS: CHLORIDE 118 MEQ/L (99-109); GFR ESTIMATE (CALCULATED) 22 mL/min/ (58.99-99999); GLUCOSE 148 mg/dL (70-99); PHOSPHORUS 2.9 mg/dL (2.5-4.9); POTASSIUM 3.4 MEQ/L (3.7-5.4); SODIUM 138 MEQ/L (136-147); UREA NITROGEN (BUN) 85 mg/dL (9-23)
[2017-06-21 08:17] LABS: BASE EXCESS -17.8 mEq/L (-3 to +3); BICARBONATE 9.1 mEq/L (22-26); METHEMOGLOBIN 1.4 % (0-1.5); PCO2 25 mm Hg (35-45); PO2 89 mm Hg (80-100)
[2017-06-21 08:18] LABS: COMMENTS - BLOOD GASES A+C+; SITE LR; TOTAL RESP RATE 17 resp/min; pH 7.17 (7.35-7.45)
[2017-06-21 08:46] LABS: BASOPHIL (%) 0.4 % (0-1); EOSINOPHIL (%) 1.1 % (0-5); EOSINOPHIL COUNT 0.1 K/uL (0-0.3); HEMATOCRIT 34.1 % (38.0-50.0); IMMATURE GRANULOCYTE (%) 0.4 % (0.0-0.7); LYMPHOCYTE (%) 19.4 % (15-42); LYMPHOCYTE COUNT 2.2 K/uL (1.0-2.8); MCH 29.3 PG (29.0-34.0); MCHC 32.8 G/DL (30.0-36.0); MCV 89.3 FL (86-99); MONOCYTE (%) 7.1 % (3-12); MONOCYTE COUNT 0.8 K/uL (0-0.8); NEUTROPHIL (%) 71.6 % (45-76); NEUTROPHIL COUNT 7.9 K/uL (1.8-6.4); PLATELET COUNT 240 K/uL (156-360); RBC DIS.WIDTH-CV 16.1 % (11.8-14.6); RBC DIS.WIDTH-SD 52.9 % (39-53); RED BLOOD COUNT 3.82 M/uL (4.00-5.50); WHITE BLOOD COUNT 11.1 K/uL (4.1-10.2)
[2017-06-21 08:47] LABS: HEMOGLOBIN 11.2 G/DL (12.5-16.6)
[2017-06-21 09:15] LABS: CHLORIDE 120 MEQ/L (99-109); GFR ESTIMATE (CALCULATED) 22 mL/min/ (58.99-99999); GLUCOSE 130 mg/dL (70-99); HIGH-SENS C-REACTIVE PROTEIN 0.84 MG/DL (0.02-0.20); PHOSPHORUS 2.4 mg/dL (2.5-4.9); POTASSIUM 3.2 MEQ/L (3.7-5.4); SODIUM 140 MEQ/L (136-147); UREA NITROGEN (BUN) 85 mg/dL (9-23)
[2017-06-21 11:46] LABS: APPEARANCE CLOUDY ((CLEAR)); BILIRUBIN NEGATIVE; BLOOD SMALL; COLOR YELLOW ((YELLOW)); GLUCOSE (STRIP) 50; KETONES NEGATIVE; LEUKOCYTES MODERATE; NITRITE NEGATIVE; PROTEIN (STRIP) 100; UROBILINOGEN 0.2 MG/DL (0.2-1.0)
[2017-06-21 12:20] LABS: BACTERIA 1+ /HPF; EPITHELIAL CELLS NONE SEEN /HPF; MUCUS 1+ /LPF; RED BLOOD CELLS TNTC /HPF (0-5); UCUL ADDED? YES; WHITE BLOOD CELLS TNTC /HPF (0-5)
[2017-06-21 13:25] LABS: CHLORIDE 123 MEQ/L (99-109); CREATININE 2.9 MG/DL (0.6-1.3); GFR ESTIMATE (CALCULATED) 23 mL/min/ (58.99-99999); PHOSPHORUS 2.7 mg/dL (2.5-4.9); POTASSIUM 3.6 MEQ/L (3.7-5.4); SODIUM 141 MEQ/L (136-147); UREA NITROGEN (BUN) 76 mg/dL (9-23)
[2017-06-21 13:37] LABS: GLUCOSE 252 mg/dL (70-99)
[2017-06-21 17:00] LABS: CHLORIDE 121 MEQ/L (99-109); CREATININE 2.8 MG/DL (0.6-1.3); GFR ESTIMATE (CALCULATED) 24 mL/min/ (58.99-99999); GLUCOSE 204 mg/dL (70-99); PHOSPHORUS 3.2 mg/dL (2.5-4.9); POTASSIUM 3.4 MEQ/L (3.7-5.4); SODIUM 140 MEQ/L (136-147); UREA NITROGEN (BUN) 75 mg/dL (9-23)
[2017-06-21 20:40] LABS: CHLORIDE 121 MEQ/L (99-109); CREATININE 2.6 MG/DL (0.6-1.3); GFR ESTIMATE (CALCULATED) 26 mL/min/ (58.99-99999); GLUCOSE 223 mg/dL (70-99); POTASSIUM 3.3 MEQ/L (3.7-5.4); SODIUM 140 MEQ/L (136-147); UREA NITROGEN (BUN) 73 mg/dL (9-23)
[2017-06-22] VITALS (23 sets, daily range): BP systolic 113–190; BP diastolic 51–78
[2017-06-22 06:46] LABS: BASOPHIL (%) 0.5 % (0-1); EOSINOPHIL (%) 3.8 % (0-5); EOSINOPHIL COUNT 0.3 K/uL (0-0.3); HEMATOCRIT 31.4 % (38.0-50.0); HEMOGLOBIN 10.3 G/DL (12.5-16.6); IMMATURE GRANULOCYTE (%) 0.4 % (0.0-0.7); LYMPHOCYTE (%) 23.4 % (15-42); LYMPHOCYTE COUNT 1.9 K/uL (1.0-2.8); MCH 29.8 PG (29.0-34.0); MCHC 32.8 G/DL (30.0-36.0); MCV 90.8 FL (86-99); MONOCYTE (%) 6.9 % (3-12); MONOCYTE COUNT 0.6 K/uL (0-0.8); NEUTROPHIL COUNT 5.2 K/uL (1.8-6.4); PLATELET COUNT 197 K/uL (156-360); RBC DIS.WIDTH-CV 16.2 % (11.8-14.6); RBC DIS.WIDTH-SD 53.4 % (39-53); RED BLOOD COUNT 3.46 M/uL (4.00-5.50); WHITE BLOOD COUNT 7.9 K/uL (4.1-10.2)
[2017-06-22 07:20] LABS: HIGH-SENS C-REACTIVE PROTEIN 0.83 MG/DL (0.02-0.20)
[2017-06-22 07:25] LABS: ALBUMIN 3.4 G/DL (3.2-4.8); ALKALINE PHOSPHATASE 63 IU/L (3-129); ALT (GPT) 6 IU/L (3-49); AST (GOT) 8 IU/L (2-34); CHLORIDE 121 MEQ/L (99-109); CREATININE 2.8 MG/DL (0.6-1.3); GFR ESTIMATE (CALCULATED) 24 mL/min/ (58.99-99999); GLUCOSE 146 mg/dL (70-99); POTASSIUM 3.4 MEQ/L (3.7-5.4); SODIUM 140 MEQ/L (136-147); TOTAL BILIRUBIN 0.4 MG/DL (0.0-1.0); TOTAL PROTEIN 5.5 G/DL (6.4-8.3); UREA NITROGEN (BUN) 61 mg/dL (9-23)
[2017-06-23] VITALS (12 sets, daily range): BP systolic 119–183; BP diastolic 57–94
[2017-06-23 06:45] LABS: BASOPHIL (%) 0.6 % (0-1); BASOPHIL COUNT 0.1 K/uL (0-0.1); EOSINOPHIL COUNT 0.3 K/uL (0-0.3); HEMATOCRIT 31.6 % (38.0-50.0); HEMOGLOBIN 10.7 G/DL (12.5-16.6); IMMATURE GRANULOCYTE (%) 0.4 % (0.0-0.7); LYMPHOCYTE (%) 29.7 % (15-42); LYMPHOCYTE COUNT 2.4 K/uL (1.0-2.8); MCH 30.5 PG (29.0-34.0); MCHC 33.9 G/DL (30.0-36.0); MONOCYTE (%) 5.9 % (3-12); MONOCYTE COUNT 0.5 K/uL (0-0.8); NEUTROPHIL (%) 59.4 % (45-76); NEUTROPHIL COUNT 4.8 K/uL (1.8-6.4); PLATELET COUNT 224 K/uL (156-360); RBC DIS.WIDTH-CV 15.9 % (11.8-14.6); RBC DIS.WIDTH-SD 51.8 % (39-53); RED BLOOD COUNT 3.51 M/uL (4.00-5.50)
[2017-06-23 07:08] LABS: ALBUMIN 3.3 G/DL (3.2-4.8); ALKALINE PHOSPHATASE 65 IU/L (3-129); ALT (GPT) 7 IU/L (3-49); CHLORIDE 121 MEQ/L (99-109); CREATININE 2.7 MG/DL (0.6-1.3); GFR ESTIMATE (CALCULATED) 25 mL/min/ (58.99-99999); POTASSIUM 3.6 MEQ/L (3.7-5.4); SODIUM 140 MEQ/L (136-147); TOTAL PROTEIN 5.9 G/DL (6.4-8.3); UREA NITROGEN (BUN) 54 mg/dL (9-23)
[2017-06-23 07:09] LABS: AST (GOT) 12 IU/L (2-34); GLUCOSE 88 mg/dL (70-99); TOTAL BILIRUBIN 0.3 MG/DL (0.0-1.0)
[2017-06-24] VITALS (8 sets, daily range): BP systolic 0–163; BP diastolic 0–76
[2017-06-24 05:38] LABS: BASOPHIL (%) 0.6 % (0-1); EOSINOPHIL (%) 5.7 % (0-5); EOSINOPHIL COUNT 0.4 K/uL (0-0.3); HEMATOCRIT 28.7 % (38.0-50.0); HEMOGLOBIN 9.8 G/DL (12.5-16.6); IMMATURE GRANULOCYTE (%) 0.8 % (0.0-0.7); LYMPHOCYTE (%) 29.8 % (15-42); LYMPHOCYTE COUNT 1.9 K/uL (1.0-2.8); MCH 29.4 PG (29.0-34.0); MCHC 34.1 G/DL (30.0-36.0); MCV 86.2 FL (86-99); MONOCYTE (%) 7.3 % (3-12); MONOCYTE COUNT 0.5 K/uL (0-0.8); NEUTROPHIL (%) 55.8 % (45-76); NEUTROPHIL COUNT 3.5 K/uL (1.8-6.4); PLATELET COUNT 205 K/uL (156-360); RBC DIS.WIDTH-CV 15.9 % (11.8-14.6); RED BLOOD COUNT 3.33 M/uL (4.00-5.50); WHITE BLOOD COUNT 6.3 K/uL (4.1-10.2)
[2017-06-24 06:12] LABS: ALBUMIN 3.3 G/DL (3.2-4.8); ALKALINE PHOSPHATASE 63 IU/L (3-129); ALT (GPT) 6 IU/L (3-49); AST (GOT) 8 IU/L (2-34); CHLORIDE 119 MEQ/L (99-109); CREATININE 2.8 MG/DL (0.6-1.3); GFR ESTIMATE (CALCULATED) 24 mL/min/ (58.99-99999); GLUCOSE 98 mg/dL (70-99); SODIUM 140 MEQ/L (136-147); TOTAL BILIRUBIN 0.3 MG/DL (0.0-1.0); TOTAL PROTEIN 5.7 G/DL (6.4-8.3); UREA NITROGEN (BUN) 51 mg/dL (9-23)
[2017-06-24 22:01] LABS: ALBUMIN 3.4 G/DL (3.2-4.8); CHLORIDE 115 MEQ/L (99-109); CREATININE 2.5 MG/DL (0.6-1.3); GFR ESTIMATE (CALCULATED) 27 mL/min/ (58.99-99999); GLUCOSE 252 mg/dL (70-99); PHOSPHORUS 2.5 mg/dL (2.5-4.9); POTASSIUM 3.4 MEQ/L (3.7-5.4); SODIUM 137 MEQ/L (136-147); UREA NITROGEN (BUN) 50 mg/dL (9-23)
[2017-06-25 04:00] VITALS: BP 141/65
[2017-06-25 05:35] LABS: BASOPHIL (%) 0.8 % (0-1); BASOPHIL COUNT 0.1 K/uL (0-0.1); EOSINOPHIL (%) 6.2 % (0-5); EOSINOPHIL COUNT 0.4 K/uL (0-0.3); HEMATOCRIT 29.4 % (38.0-50.0); HEMOGLOBIN 9.8 G/DL (12.5-16.6); IMMATURE GRANULOCYTE (%) 1.1 % (0.0-0.7); LYMPHOCYTE COUNT 2.2 K/uL (1.0-2.8); MCH 29.3 PG (29.0-34.0); MCHC 33.3 G/DL (30.0-36.0); MCV 87.8 FL (86-99); MONOCYTE (%) 6.8 % (3-12); MONOCYTE COUNT 0.5 K/uL (0-0.8); NEUTROPHIL (%) 51.1 % (45-76); NEUTROPHIL COUNT 3.4 K/uL (1.8-6.4); PLATELET COUNT 223 K/uL (156-360); RBC DIS.WIDTH-CV 15.9 % (11.8-14.6); RBC DIS.WIDTH-SD 51.7 % (39-53); RED BLOOD COUNT 3.35 M/uL (4.00-5.50); WHITE BLOOD COUNT 6.6 K/uL (4.1-10.2)
[2017-06-25 06:06] LABS: ALBUMIN 3.4 G/DL (3.2-4.8); ALKALINE PHOSPHATASE 60 IU/L (3-129); ALT (GPT) 10 IU/L (3-49); AST (GOT) 13 IU/L (2-34); CHLORIDE 115 MEQ/L (99-109); CREATININE 2.5 MG/DL (0.6-1.3); CREATININE 2.6 MG/DL (0.6-1.3); GFR ESTIMATE (CALCULATED) 26 mL/min/ (58.99-99999); GFR ESTIMATE (CALCULATED) 27 mL/min/ (58.99-99999); GLUCOSE 175 mg/dL (70-99); GLUCOSE 179 mg/dL (70-99); POTASSIUM 3.8 MEQ/L (3.7-5.4); POTASSIUM 3.9 MEQ/L (3.7-5.4); SODIUM 139 MEQ/L (136-147); SODIUM 140 MEQ/L (136-147); TOTAL BILIRUBIN 0.2 MG/DL (0.0-1.0); TOTAL PROTEIN 6.2 G/DL (6.4-8.3); UREA NITROGEN (BUN) 50 mg/dL (9-23); UREA NITROGEN (BUN) 51 mg/dL (9-23)
[2017-06-25 07:27] VITALS: BP 131/77
[2017-06-25 10:28] VITALS: BP 99/58
[2017-06-25 11:31] VITALS: BP 131/61
[2017-06-25 12:23] LABS: CHLORIDE 114 MEQ/L (99-109); CREATININE 2.5 MG/DL (0.6-1.3); GFR ESTIMATE (CALCULATED) 27 mL/min/ (58.99-99999); GLUCOSE 168 mg/dL (70-99); POTASSIUM 4.5 MEQ/L (3.7-5.4); SODIUM 138 MEQ/L (136-147); UREA NITROGEN (BUN) 48 mg/dL (9-23)
[2017-06-25 16:22] VITALS: BP 159/67
[2017-06-25 19:52] VITALS: BP 144/67
[2017-06-26] VITALS (7 sets, daily range): BP systolic 119–145; BP diastolic 56–75
[2017-06-26 04:40] LABS: BASOPHIL (%) 0.8 % (0-1); BASOPHIL COUNT 0.1 K/uL (0-0.1); EOSINOPHIL (%) 6.1 % (0-5); EOSINOPHIL COUNT 0.4 K/uL (0-0.3); HEMATOCRIT 31.1 % (38.0-50.0); HEMOGLOBIN 10.5 G/DL (12.5-16.6); IMMATURE GRANULOCYTE (%) 1.4 % (0.0-0.7); LYMPHOCYTE (%) 33.3 % (15-42); LYMPHOCYTE COUNT 2.4 K/uL (1.0-2.8); MCH 29.4 PG (29.0-34.0); MCHC 33.8 G/DL (30.0-36.0); MCV 87.1 FL (86-99); MONOCYTE (%) 7.9 % (3-12); MONOCYTE COUNT 0.6 K/uL (0-0.8); NEUTROPHIL (%) 50.5 % (45-76); NEUTROPHIL COUNT 3.6 K/uL (1.8-6.4); PLATELET COUNT 213 K/uL (156-360); RBC DIS.WIDTH-CV 15.9 % (11.8-14.6); RBC DIS.WIDTH-SD 50.1 % (39-53); RED BLOOD COUNT 3.57 M/uL (4.00-5.50); WHITE BLOOD COUNT 7.2 K/uL (4.1-10.2)
[2017-06-26 04:52] LABS: ALBUMIN 3.4 g/dL (3.2-4.8); CHLORIDE 112 mEq/L (99-109); POTASSIUM 3.8 mEq/L (3.7-5.4); SODIUM 140 mEq/L (136-147)
[2017-06-26 04:54] LABS: GLUCOSE 130 mg/dL (70-99)
[2017-06-26 04:56] LABS: TOTAL BILIRUBIN 0.4 mg/dL (0.0-1.0); TOTAL PROTEIN 6.5 g/dL (6.4-8.3)
[2017-06-26 04:58] LABS: ALKALINE PHOSPHATASE 69 IU/L (3-129); CREATININE 2.5 mg/dL (0.6-1.3); GFR ESTIMATE (CALCULATED) 27 mL/min/ (58.99-99999)
[2017-06-26 04:59] LABS: UREA NITROGEN (BUN) 47 mg/dL (9-23)
[2017-06-26 05:00] LABS: AST (GOT) 15 IU/L (2-34)
[2017-06-26 05:01] LABS: ALT (GPT) 16 IU/L (3-49)
[2017-06-27 04:30] VITALS: BP 145/71
[2017-06-27 05:43] LABS: BASOPHIL (%) 0.5 % (0-1); EOSINOPHIL (%) 4.9 % (0-5); EOSINOPHIL COUNT 0.4 K/uL (0-0.3); HEMATOCRIT 30.5 % (38.0-50.0); HEMOGLOBIN 10.2 G/DL (12.5-16.6); IMMATURE GRANULOCYTE (%) 2.3 % (0.0-0.7); LYMPHOCYTE COUNT 2.6 K/uL (1.0-2.8); MCH 29.4 PG (29.0-34.0); MCHC 33.4 G/DL (30.0-36.0); MCV 87.9 FL (86-99); MONOCYTE (%) 5.9 % (3-12); MONOCYTE COUNT 0.5 K/uL (0-0.8); NEUTROPHIL (%) 54.4 % (45-76); NEUTROPHIL COUNT 4.4 K/uL (1.8-6.4); PLATELET COUNT 218 K/uL (156-360); RBC DIS.WIDTH-CV 15.9 % (11.8-14.6); RBC DIS.WIDTH-SD 49.7 % (39-53); RED BLOOD COUNT 3.47 M/uL (4.00-5.50)
[2017-06-27 05:56] LABS: CHLORIDE 104 mEq/L (99-109); POTASSIUM 4.2 mEq/L (3.7-5.4); SODIUM 137 mEq/L (136-147)
[2017-06-27 05:58] LABS: GLUCOSE 113 mg/dL (70-99)
[2017-06-27 06:02] LABS: CREATININE 2.6 mg/dL (0.6-1.3); GFR ESTIMATE (CALCULATED) 26 mL/min/ (58.99-99999)
[2017-06-27 06:03] LABS: UREA NITROGEN (BUN) 52 mg/dL (9-23)
[2017-06-27 07:30] VITALS: BP 143/70
[2017-06-27 12:08] VITALS: BP 145/67
== END 2017-06-27 14:49 | disposition home health service (06) | DRG 871 ==
LOC: EME 12:48 → EDOF 22:05 → ENRESERV 22:05 → 4WEST 22:05 → ENRESERV 22:07 → 4WEST 22:47 → ENRESERV 22:53 → CANRESERV 22:53 → 4WEST 06-23 11:56 → CANRESERV 06-23 12:00 → ENRESERV 06-23 12:00 → 4WEST 06-23 14:58 → ENRESERV 06-24 12:57 → 4EAST 06-24 15:49
PROVIDERS: Internal Medicine; Internal Medicine Nephrology; Physician Assistant; Specialist; Student in an Organized Health Care Education/Training Program
DX: A41.9 Sepsis, unspecified organism (principal); E11.10 Type 2 diabetes mellitus with ketoacidosis without coma; E11.22 Type 2 diabetes mellitus with diabetic chronic kidney disease; E11.21 Type 2 diabetes mellitus with diabetic nephropathy; I12.9 Hypertensive chronic kidney disease with stage 1 through stage 4 chronic kidney disease, or unspecified chronic kidney disease; N18.4 Chronic kidney disease, stage 4 (severe); I25.2 Old myocardial infarction; F32.9 Major depressive disorder, single episode, unspecified; Z95.1 Presence of aortocoronary bypass graft; E11.40 Type 2 diabetes mellitus with diabetic neuropathy, unspecified; Z86.73 Personal history of transient ischemic attack (TIA), and cerebral infarction without residual deficits; N39.0 Urinary tract infection, site not specified; N17.9 Acute kidney failure, unspecified; E86.0 Dehydration; E87.6 Hypokalemia; E11.65 Type 2 diabetes mellitus with hyperglycemia; Z79.4 Long term (current) use of insulin; E20.8 Other hypoparathyroidism; D63.1 Anemia in chronic kidney disease; Z91.14 Patient's other noncompliance with medication regimen; N25.81 Secondary hyperparathyroidism of renal origin; E78.5 Hyperlipidemia, unspecified; K21.9 Gastro-esophageal reflux disease without esophagitis; Z66 Do not resuscitate
CPT/HCPCS: 36600; 71020; 80048; 80048 91; 80053; 80069; 80076; 81003; 82010; 82803; 82948; 83036; 83605; 84100; 84145 90; 84484; 85025; 85027; 86141; 87040; 87086; 87106; 87502; 87641; 93005; 93306; 99281; 99285; C9113; J0360; J0692; J1644; J1815; J7030; J7050; J7070